=== PATIENT | female | born 1940 | race Caucasian/White ===

== ENCOUNTER 2016-07-31 07:47 | Day surgery (SDC) | payer MEDICARE ==
[~2016-07-31 07:47] MED LIST: FENTANYL 250 MCG/5 ML AMP IV PRN; IV START KIT ONE; LACTATED RINGERS 1,000 ML IV SCH; MIDAZOLAM HCL 5 MG/5 ML VIAL IV PRN
[2016-07-31] MEDS ORDERED: MIDAZOLAM HCL 1 MG/ML 2ML VIAL ONE (08:42)
[2016-07-31] MEDS ORDERED: LIDOCAINE 2% (PRES FREE) 5 ML VIAL ONE (08:52)
[2016-07-31] MEDS ORDERED: PROPOFOL 20 ML IV ONE (08:52)
--- NOTE | 2016-08-02 08:54 | SURGPATH ---
[facility] [address] [place] [id number] Patient Name: RADHA BLAKE I. MR#: [id number] : 1940 Gender: F Specimen #: [id number] Collected: 07/31/2016 Received: 08/01/2016 Reported: 08/02/2016 Submitting Phys: ELIJAH LOMELI Copy To Phys: [facility] RESENDIZ Clinical History / Pre-Operative Diagnosis: Screening; history of polyps Specimen Source / Surgical Procedure Performed: #1-hepatic flexure; #2-cecal; #3-sigmoid at 30 cm Interpretation: 1. HEPATIC FLEXURE POLYP, BIOPSY: - TUBULAR ADENOMA 2. CECUM, BIOPSY: - NO PATHOLOGIC NORMALITY 3. SIGMOID, BIOPSY: - ACTIVE COLITIS, NONSPECIFIC - SEE COMMENT Comment: The sigmoid biopsy shows active colitis which is nonspecific. It is consistent with acute self-limited colitis, although focally there are some ischemia-like changes. Please correlate clinically an endoscopically. Epithelial polyp is not seen in the sigmoid colon. Electronically Signed Out Victoriano Ackerman M.D. Gross Description: #1 The specimen is received in a formalin filled container labeled with the patient's name and "hepatic flexure polyp". A polypoid black biopsy is 0.4 x 0.3 x 0.2 cm. Totally embedded in cassette #1. #2 The specimen is received in a formalin filled container labeled with the patient's name and "cecal". A single black biopsy is 0.3 cm. Totally embedded in cassette #2. #3 The specimen is received in a formalin filled container labeled with the patient's name and "sigmoid at 30 cm". Two shaw-black biopsies are 0.3 and 0.5 cm. Totally embedded in cassette #3. Ginger Lance Microscopic Description: Microscopic performed. 1: 82101 2: [id number] 3: 46761 D12.3
== END 2016-07-31 10:25 | disposition home or self-care (01) ==
LOC: SDC 07:47
PROVIDERS: ATTEND Internal Medicine Gastroenterology
PROC: 0DBL8ZX Excision of Transverse Colon, Via Natural or Artificial Opening Endoscopic, Diagnostic (ICD-10-PCS; principal; 2016-07-31)
PROC: 0DBH8ZX Excision of Cecum, Via Natural or Artificial Opening Endoscopic, Diagnostic (ICD-10-PCS; 2016-07-31)
PROC: 0DBN8ZX Excision of Sigmoid Colon, Via Natural or Artificial Opening Endoscopic, Diagnostic (ICD-10-PCS; 2016-07-31)
DX: K51.90 Ulcerative colitis, unspecified, without complications (principal); K57.30 Diverticulosis of large intestine without perforation or abscess without bleeding; D12.3 Benign neoplasm of transverse colon; Z86.010 Personal history of colon polyps; I10 Essential (primary) hypertension; E78.5 Hyperlipidemia, unspecified; E55.9 Vitamin D deficiency, unspecified; F32.9 Major depressive disorder, single episode, unspecified; Z72.0 Tobacco use; Z88.1 Allergy status to other antibiotic agents; Z79.82 Long term (current) use of aspirin
CPT/HCPCS: 45385; 45380; J3010; J2250 ×2; J7120